=== PATIENT | female | born 1975 ===

== ENCOUNTER 2024-02-19 21:21 | Emergency (ER) | payer SELFPAY ==
[~2024-02-19] VITALS: Ht 160 cm; Wt 87.1 kg
[2024-02-19 21:22] VITALS: BP 174/88; TEMP 97.8; O2SAT 98
[2024-02-19] MEDS ORDERED: METH4PACK PO (21:34)
[2024-02-19] MEDS ORDERED: METH-1164 PO (21:34)
== END 2024-02-20 00:17 | disposition left against medical advice (07) ==
LOC: M ED 21:21
DX: Z53.21 Procedure and treatment not carried out due to patient leaving prior to being seen by health care provider (principal)